=== PATIENT | male | born 1965 | race Caucasian/White ===

== ENCOUNTER 2017-09-02 15:30 | Emergency (ER) | payer OTHER ==
[~2017-09-02] VITALS: Ht 172.7 cm; Wt 122.5 kg
[2017-09-02] MEDS ORDERED: CYCLOBENZAPRINE10 MG PO (16:28)
== END 2017-09-02 17:32 | disposition home or self-care (01) ==
LOC: ED 15:30
DX: S39.012A Strain of muscle, fascia and tendon of lower back, initial encounter (principal); X50.0XXA Overexertion from strenuous movement or load, initial encounter; Y93.89 Activity, other specified; Y92.69 Other specified industrial and construction area as the place of occurrence of the external cause; Y99.9 Unspecified external cause status

== ENCOUNTER 2017-10-03 18:36 | Emergency (ER) | payer OTHER ==
[~2017-10-03] VITALS: Ht 172.7 cm; Wt 113.4 kg
[~2017-10-03 18:36] MED LIST: CYCLOBENZAPRINE10 MG PO
[2017-10-03] MEDS ORDERED: MEDROL DOSEPAK4 MG PO (20:53)
[2017-10-03] MEDS ORDERED: CYCLOBENZAPRINE5 M3 PO (20:53)
[2017-10-03] MEDS ORDERED: ANUSOL-HC25 MG R (20:53)
== END 2017-10-03 20:57 | disposition home or self-care (01) ==
LOC: ED 18:36
DX: M54.16 Radiculopathy, lumbar region (principal); Z79.899 Other long term (current) drug therapy

== ENCOUNTER 2021-01-20 10:41 | Emergency (ER) | payer SELFPAY ==
[~2021-01-20] VITALS: Ht 172.7 cm; Wt 117.9 kg
[~2021-01-20 10:41] MED LIST changes: +ANUSOL-HC25 MG R; +CYCLOBENZAPRINE5 M3 PO; +MEDROL DOSEPAK4 MG PO
[2021-01-20] MEDS ORDERED: NORVASC5 MG PO (11:05)
[2021-01-20] MEDS ORDERED: MILK OF MA400 MG/52 PO (11:05)
== END 2021-01-20 11:08 | disposition home or self-care (01) ==
LOC: ED 10:41
DX: I10 Essential (primary) hypertension (principal); K59.00 Constipation, unspecified; Z79.899 Other long term (current) drug therapy

== ENCOUNTER 2022-09-01 17:25 | Emergency (ER) | payer MEDICAID ==
[~2022-09-01] VITALS: Ht 172.7 cm; Wt 102.5 kg
[~2022-09-01 17:25] MED LIST changes: +MILK OF MA400 MG/52 PO; +NORVASC5 MG PO
[2022-09-01 18:00] LABS: BILIRUBIN 1+ (Negative); BLOOD Negative (Negative); CLARITY Clear (Clear); COLOR Dark Yellow (Yellow); GLUCOSE Negative (Negative); KETONE Negative (Negative); LEUKO ESTERASE Negative (Negative); NITRITE Negative (Negative); PH 5.5 (4.5-8.0)
[2022-09-01 18:08] LABS: BASO % 0.3 % (0.0-1.0); EOS # 0.1 10*3/uL (0.0-0.4); EOS % 1.2 % (1.0-4.0); HEMATOCRIT 40.5 % (42.0-52.0); LYMPH # 1.3 10*3/uL (1.3-4.4); LYMPH % 13.5 % (27.0-41.0); MEAN CELL VOLUME 80.4 fl (80.0-94.0); MEAN CORPUSCULAR HGB 26.4 pg (27.0-31.0); MEAN CORPUSCULAR HGB CONC 32.8 g/dl (33.0-37.0); MEAN PLATELET VOLUME 9.6 fl (9.6-12.3); MONO # 0.9 10*3/uL (0.1-1.0); MONO % 9.4 % (3.0-9.0); NEUT # 7.2 10*3/uL (2.3-7.9); NEUT % 75.3 % (47.0-73.0); PLATELET COUNT AUTOMATED 217 10*3/uL (130-400); RED BLOOD COUNT 5.04 10*6/uL (4.50-5.90); RED CELL DISTRI WIDTH 17.1 % (0-14.5); WHITE BLOOD COUNT 9.6 10*3/uL (4.8-10.8)
[2022-09-01 18:20] LABS: BUN 17 mg/dl (9-23); CHLORIDE 101 mmol/L (98-107)
[2022-09-01 18:22] LABS: BACTERIA TRACE; RBC 0-2 rbc/hpf (0-2)
== END 2022-09-01 18:49 | disposition home or self-care (01) ==
LOC: ED 17:25
PROVIDERS: Internal Medicine
DX: R82.2 Biliuria (principal)